=== PATIENT | female | born 1975 | race Caucasian/White ===

== ENCOUNTER 2017-09-22 08:50 | Inpatient (IN) | payer OTHER ==
[2017-09-22] MEDS ORDERED: SODIUM CHLORIDE 0.9% 1,000 ML IV STA ×2 (09:49→10:04)
[2017-09-22] MEDS ORDERED: ONDANSETRON 4 MG/2 ML VIAL IVP STA ×2 (10:04→13:45)
[2017-09-22] MEDS ORDERED: HYDROmorphone 0.5 MG/0.5 ML SYRINGE IVP STA (10:04)
[2017-09-22] MEDS ORDERED: RX INFO: IV CONTRAST WAS GIVEN 1 EACH MISC MISCELLANE PRN (10:04)
[2017-09-22] MEDS ORDERED: KETOROLAC 30 MG/ML 1 ML VIAL IVP STA (10:04)
--- NOTE | 2017-09-22 10:06 | ED ---
Abdominal Pain HPI - General Chief Complaint: Abdominal Pain Stated Complaint: ABDOMINAL PAIN Time Seen by Provider: 09/22/17 09:32 Source: patient, RN notes reviewed, old records reviewed Mode of arrival: ambulatory Limitations: no limitations - History of Present Illness Initial Comments: This is a 42-year-old female chief complaint of 2 days of right lower quadrant right upper quadrant abdominal pain. Patient reports that the pain is been worse with certain movements and going over bumps in the car. She states she's had no fever or chills but has felt nauseated due to the pain. She denies any significant medical history or surgical history. She does have a prescription for Zoloft. She states she's had no vomiting diarrhea or changes in bowel habits or urination. - Related Data Home Medications Medication Instructions Recorded Confirmed Plexis Multivitamin 1 tab PO BID 09/22/17 09/22/17 Sertraline HCl [Zoloft] 100 mg PO HS 09/22/17 09/22/17 Allergies Allergy/AdvReac Type Severity Reaction Status Date / Time Penicillins Allergy Rash/Hives Verified 09/22/17 09:37 Sulfa (Sulfonamide Allergy Rash/Hives Verified 09/22/17 09:37 Antibiotics) Review of Systems ROS Statement: Those systems with pertinent positive or pertinent negative responses have been documented in the HPI. ROS Other: All systems not noted in ROS Statement are negative. Past Medical History Past Medical History: No Reported History History of Any Multi-Drug Resistant Organisms: None Reported Past Surgical History: Section Additional Past Surgical History / Comment(s): uterine ablation Past Psychological History: Anxiety, Depression Smoking Status: Never smoker Past Alcohol Use History: Occasional Past Drug Use History: None Reported General Exam - General Exam Comments Initial Comments: Patient is a 42-year-old female. No acute distress. Limitations: no limitations General appearance: alert, in no apparent distress Head exam: Present: atraumatic, normocephalic, normal inspection Eye exam: Present: normal appearance, PERRL, EOMI. Absent: scleral icterus, conjunctival injection, periorbital swelling ENT exam: Present: normal exam, mucous membranes moist Neck exam: Present: normal inspection Respiratory exam: Present: normal lung sounds bilaterally. Absent: respiratory distress, wheezes, rales, rhonchi, stridor Cardiovascular Exam: Present: regular rate, normal rhythm, normal heart sounds. Absent: systolic murmur, diastolic murmur, rubs, gallop, clicks GI/Abdominal exam: Present: soft, tenderness ( is significant right lower quadrant tenderness.), normal bowel sounds. Absent: distended, guarding, rebound, rigid Course Vital Signs 09/22/17 09/22/17 09/22/17 09:05 12:24 13:04 Temperature 97.9 F Pulse Rate 97 101 H 101 H Respiratory 18 18 16 Rate Blood Pressure 114/57 121/56 116/57 O2 Sat by Pulse 97 99 99 Oximetry Medical Decision Making - Medical Decision Making This patient is a 42-year-old female chief complaint of 2 days of right lower quadrant abdominal pain. She's had no fever or chills. She does have significant tenderness and guarding noted. Positive obturator sign. At this time patient's was given IV fluids and pain medicine. She does report that she feels better after receiving the fluids and pain medicine. We did do a CT abdomen and pelvis. There is evidence of acute appendicitis. Patient is ALLERGIC to penicillins. I did start the patient on Levaquin IV. She's been remaining nothing by mouth. 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 At this time I discussed case with Dr. Mack. We will consult the on-call surgeon. Case discussed with Dr. Shannon. We started patient on antibiotics, likely taking patient to surgery this evening. Patient will remain nothing by mouth. - Lab Data Result diagrams: 09/22/17 10:20 09/22/17 10:20 Lab Results 09/22/17 09/22/17 09/22/17 Range/Units 10:20 10:20 10:20 WBC 15.0 H (3.8-10.6) k/uL RBC 5.01 (3.80-5.40) m/uL Hgb 15.2 (11.4-16.0) gm/dL Hct 47.8 H (34.0-46.0) % MCV 95.4 (80.0-100.0) fL MCH 30.4 (25.0-35.0) pg MCHC 31.9 (31.0-37.0) g/dL RDW 12.0 (11.5-15.5) % Plt Count 237 (150-450) k/uL Neutrophils % 88 % Lymphocytes % 5 % Monocytes % 4 % Eosinophils % 2 % Basophils % 0 % Neutrophils # 13.2 H (1.3-7.7) k/uL Lymphocytes # 0.7 L (1.0-4.8) k/uL Monocytes # 0.7 (0-1.0) k/uL Eosinophils # 0.2 (0-0.7) k/uL Basophils # 0.0 (0-0.2) k/uL Sodium 140 (137-145) mmol/L Potassium 4.3 (3.5-5.1) mmol/L Chloride 104 (98-107) mmol/L Carbon Dioxide 24 (22-30) mmol/L Anion Gap 12 mmol/L BUN 15 (7-17) mg/dL Creatinine 0.72 (0.52-1.04) mg/dL Est GFR (MDRD) Af Amer >60 (>60 ml/min/1.73 sqM) Est GFR (MDRD) Non-Af >60 (>60 ml/min/1.73 sqM) Glucose 71 L (74-99) mg/dL Calcium 9.1 (8.4-10.2) mg/dL Total Bilirubin 1.1 (0.2-1.3) mg/dL AST 20 (14-36) U/L ALT 19 (9-52) U/L Alkaline Phosphatase 61 (38-126) U/L Total Protein 7.2 (6.3-8.2) g/dL Albumin 4.5 (3.5-5.0) g/dL Amylase 47 (30-110) U/L Lipase 96 (23-300) U/L Urine Color Yellow Urine Appearance Clear (Clear) Urine pH 5.5 (5.0-8.0) Ur Specific [place] 1.020 (1.001-1.035) Urine Protein Trace H (Negative) Urine Glucose (UA) Negative (Negative) Urine Ketones 4+ H (Negative) Urine Blood Negative (Negative) Urine Nitrite Negative (Negative) Urine Bilirubin Negative (Negative) Urine Urobilinogen <2.0 (<2.0) mg/dL Ur Leukocyte Esterase Negative (Negative) - Radiology Data Radiology results: report reviewed Findings compatible with acute appendicitis. There is moderate amount of surrounding inflammation and a 1.1 cm appendicolith at the appendiceal base. No abscess or free air noted. There is moderate pelvic free fluid probably reactive. A couple prominent right lower quadrant mesenteric lymph nodes likely reactive as well. Further follow-up is recommended for 3.6 cm mass along the distal curvature of the stomach. This may be arising from the wall the stomach and may represent a Gist tumor. Other neoplastic etiology not excluded at this time. There is also mild to moderate circumferential bladder wall thickening. Correlate for excluding cystitis. Disposition Clinical Impression: Appendicitis, Mass of stomach Disposition: ADMITTED IP TO THIS HOSP Condition: Stable Referrals: Seymour Ernst DO [Primary Care Provider] - 1-2 days Time of Disposition: 13:40
[2017-09-22 10:58] LABS: Basophils % (A) 0 %; Eosinophils # (A) 0.2 k/uL (0-0.7); Eosinophils % (A) 2 %; HCT 47.8 % (34.0-46.0); HGB 15.2 gm/dL (11.4-16.0); Lymphocytes # (A) 0.7 k/uL (1.0-4.8); Lymphocytes % (A) 5 %; MCH 30.4 pg (25.0-35.0); MCHC 31.9 g/dL (31.0-37.0); MCV 95.4 fL (80.0-100.0); Mean Platelet Volume 7.2; Monocytes # (A) 0.7 k/uL (0-1.0); Monocytes % (A) 4 %; Neutrophils # (A) 13.2 k/uL (1.3-7.7); Neutrophils % (A) 88 %; Platelet Count 237 k/uL (150-450); RBC 5.01 m/uL (3.80-5.40)
[2017-09-22 11:02] LABS: Appearance,Urine Clear (Clear); Bilirubin,Urine Negative (Negative); Blood,Urine Negative (Negative); Color,Urine Yellow; Glucose,Urine (UA) Negative (Negative); Ketones,Urine 4+ (Negative); Leukocyte Esterase,Urine Negative (Negative); Nitrite,Urine Negative (Negative); PH, Urine 5.5 (5.0-8.0); Protein,Urine Trace (Negative); Urobilinogen,Urine <2.0 mg/dL (<2.0)
[2017-09-22 11:13] LABS: ALT 19 U/L (9-52); AST 20 U/L (14-36); Albumin 4.5 g/dL (3.5-5.0); Alkaline Phosphatase 61 U/L (38-126); Amylase 47 U/L (30-110); Anion Gap 12 mmol/L; Blood Urea Nitrogen 15 mg/dL (7-17); Calcium 9.1 mg/dL (8.4-10.2); Carbon Dioxide 24 mmol/L (22-30); Chloride 104 mmol/L (98-107); Glucose 71 mg/dL (74-99); Lipase 96 U/L (23-300); Potassium 4.3 mmol/L (3.5-5.1); Sodium 140 mmol/L (137-145); Total Bilirubin 1.1 mg/dL (0.2-1.3); Total Protein 7.2 g/dL (6.3-8.2)
--- NOTE | 2017-09-22 12:20 | CT ---
EXAMINATION TYPE: CT abdomen pelvis w con DATE OF EXAM: 09/22/2017 COMPARISON: NONE HISTORY: 42-year-old female with right sided abdominal pain TECHNIQUE: Contiguous axial scanning of the abdomen and pelvis following administration of 100 ml Omn ipaque 300 IV contrast. Delayed images through the kidneys and coronal/sagittal reconstructions perf ormed. CT DLP: 771 mGycm Automated exposure control for dose reduction was used. FINDINGS: Heart is normal size without pericardial effusion. Lung bases clear without pleural effusion. Small amount of focal fat along the anterior falciform ligament. Otherwise, no focal liver lesion. Gallbladder, adrenal glands, kidneys, spleen, and pancreas show no gross abnormality. There is a heterogeneous enhancing area of soft tissue that is either contiguous with or arises from the distal greater curvature of the stomach measuring 3.6 cm craniocaudal by 2.4 cm wide by 2.3 cm AP , axial image 23 and coronal image 18. This is interposed in the lesser sac. Nonspecific mildly enlarged 7 mm right lower quadrant lymph nodes. Otherwise, no mesenteric or retro peritoneal lymphadenopathy. There is a 1.1 cm appendicolith at the appendiceal base with thickening and surrounding fat stranding of the appendix measuring up to 1.3 cm thick. No free air or abscess is identified. No dilated small bowel. Uterus and ovaries are visualized. There is a 2.5 cm dominant follicle or functional cyst within the left ovary. Bilateral tubal ligation clips. Moderate cul-de-sac free fluid. Mild to moderate circumfe rential bladder wall thickening. No pelvic lymphadenopathy seen. Bones: No osseous destructive process. IMPRESSION: 1. FINDINGS COMPATIBLE WITH ACUTE APPENDICITIS. THERE IS MODERATE SURROUNDING INFLAMMATION AND A 1.1 CM APPENDICOLITH AT THE APPENDICEAL BASE. NO ABSCESS OR FREE AIR SEEN. 2. MODERATE PELVIC FREE FLUID PROBABLY REACTIVE. A COUPLE PROMINENT RIGHT LOWER QUADRANT MESENTERIC L YMPH NODES LIKELY REACTIVE WELL. 3. FURTHER FOLLOW-UP IS RECOMMENDED FOR A 3.6 CM MASS ALONG THE DISTAL GREATER CURVATURE OF THE STOMA CH. THIS MAY BE ARISING FROM THE WALL OF THE STOMACH AND MAY REPRESENT A GIST TUMOR. OTHER NEOPLASTIC ETIOLOGY NOT EXCLUDED AT THIS TIME. 4. MILD TO MODERATE CIRCUMFERENTIAL BLADDER WALL THICKENING. CORRELATE TO EXCLUDE CYSTITIS.
[2017-09-22] MEDS ORDERED: LEVOFLOXACIN 750MG-D5W PMX 750 MG in DEXTROSE/WATER 1 150ML.BAG IVPB STA (12:34)
[2017-09-22] MEDS: SODIUM CHLORIDE 0.9% 1,000 ML IV SCH (13:02)
[2017-09-22] MEDS ORDERED: NALOXONE 0.4 MG/ML 1 ML VIAL IV PRN (13:41)
[2017-09-22] MEDS ORDERED: IBUPROFEN 400 MG TAB PO PRN (13:41)
[2017-09-22] MEDS ORDERED: HYDROmorphone 0.5 MG/0.5 ML SYRINGE IVP PRN (13:41)
[2017-09-22] MEDS ORDERED: ACETAMINOPHEN TAB 325 MG TAB PO PRN (13:41)
[2017-09-22] MEDS: HYDROmorphone 0.5 MG/0.5 ML SYRINGE IVP PRN ×2 (15:45→17:35)
[2017-09-22] MEDS: ONDANSETRON 4 MG/2 ML VIAL IVP PRN (17:35)
--- NOTE | 2017-09-22 19:40 | P.GSHP ---
History of Present Illness H&P Date: 09/22/17 Chief Complaint: abdominal pain The patient presented with about 2 days history of abdominal pain. Workup in the emergency department showed evidence of acute appendicitis. She's had some nausea. No previous episodes of this in the past. - Review of Systems All systems: negative Past Medical History Past Medical History: No Reported History Additional Past Medical History / Comment(s): umb hernia, History of Any Multi-Drug Resistant Organisms: None Reported Past Surgical History: Section, Tubal Ligation Additional Past Surgical History / Comment(s): uterine ablation , x2 Past Anesthesia/Blood Transfusion Reactions: No Reported Reaction Smoking Status: Never smoker - Past Family History Mother Family Medical History: Diabetes Mellitus, Rheumatoid Arthritis (RA) Additional Family Medical History / Comment(s): lupus Father Family Medical History: Hyperlipidemia, Hypertension Medications and Allergies Home Medications Medication Instructions Recorded Confirmed Type Plexis Multivitamin 1 tab PO BID 09/22/17 09/22/17 History Sertraline HCl [Zoloft] 100 mg PO HS 09/22/17 09/22/17 History Allergies Allergy/AdvReac Type Severity Reaction Status Date / Time Penicillins Allergy Rash/Hives Verified 09/22/17 14:31 Sulfa (Sulfonamide Allergy Rash/Hives Verified 09/22/17 14:31 Antibiotics) Surgical - Exam Osteopathic Statement: *. No significant issues noted on an osteopathic structural exam other than those noted in the History and Physical/Consult. Vital Signs Temp Pulse Resp BP Pulse Ox 97.9 F 97 18 114/57 97 09/22/17 09:05 09/22/17 09:05 09/22/17 09:05 09/22/17 09:05 09/22/17 09:05 - General well developed, well nourished, no distress - Eyes normal ocular movement - ENT normal pinna, normal nares, normal mucosa - Neck trachea midline - Respiratory normal respiratory effort, clear to auscultation absent: dullness - Cardiovascular Rhythm: regular - Abdomen Abdomen: soft, tender (RLQ), bowel sounds (Hypoactive) Results - Labs 09/22/17 10:20 09/22/17 10:20 Abnormal Lab Results - Last 24 Hours (Table) 09/22/17 09/22/17 09/22/17 Range/Units 10:20 10:20 10:20 WBC 15.0 H (3.8-10.6) k/uL Hct 47.8 H (34.0-46.0) % Neutrophils # 13.2 H (1.3-7.7) k/uL Lymphocytes # 0.7 L (1.0-4.8) k/uL Glucose 71 L (74-99) mg/dL Urine Protein Trace H (Negative) Urine Ketones 4+ H (Negative) Diabetes panel 09/22/17 Range/Units 10:20 Sodium 140 (137-145) mmol/L Potassium 4.3 (3.5-5.1) mmol/L Chloride 104 (98-107) mmol/L Carbon Dioxide 24 (22-30) mmol/L BUN 15 (7-17) mg/dL Creatinine 0.72 (0.52-1.04) mg/dL Glucose 71 L (74-99) mg/dL Calcium 9.1 (8.4-10.2) mg/dL AST 20 (14-36) U/L ALT 19 (9-52) U/L Alkaline Phosphatase 61 (38-126) U/L Total Protein 7.2 (6.3-8.2) g/dL Albumin 4.5 (3.5-5.0) g/dL Calcium panel 09/22/17 Range/Units 10:20 Calcium 9.1 (8.4-10.2) mg/dL Albumin 4.5 (3.5-5.0) g/dL Pituitary panel 09/22/17 Range/Units 10:20 Sodium 140 (137-145) mmol/L Potassium 4.3 (3.5-5.1) mmol/L Chloride 104 (98-107) mmol/L Carbon Dioxide 24 (22-30) mmol/L BUN 15 (7-17) mg/dL Creatinine 0.72 (0.52-1.04) mg/dL Glucose 71 L (74-99) mg/dL Calcium 9.1 (8.4-10.2) mg/dL Adrenal panel 09/22/17 Range/Units 10:20 Sodium 140 (137-145) mmol/L Potassium 4.3 (3.5-5.1) mmol/L Chloride 104 (98-107) mmol/L Carbon Dioxide 24 (22-30) mmol/L BUN 15 (7-17) mg/dL Creatinine 0.72 (0.52-1.04) mg/dL Glucose 71 L (74-99) mg/dL Calcium 9.1 (8.4-10.2) mg/dL Total Bilirubin 1.1 (0.2-1.3) mg/dL AST 20 (14-36) U/L ALT 19 (9-52) U/L Alkaline Phosphatase 61 (38-126) U/L Total Protein 7.2 (6.3-8.2) g/dL Albumin 4.5 (3.5-5.0) g/dL - Imaging CT scan - abdomen: report reviewed Assessment and Plan (1) Appendicitis Current Visit: Yes Status: Acute Code(s): K37 - UNSPECIFIED APPENDICITIS SNOMED Code(s): 39117207 Plan: Plan is laparoscopic appendectomy possible open. The procedure risk and complications were discussed. Questions were encouraged and answered. Usual postoperative course was discussed. I will do this for her today.
[2017-09-22] MEDS ORDERED: MIDAZOLAM 2 MG/2 ML VIAL ONE (19:42)
[2017-09-22] MEDS ORDERED: PROPOFOL 10 MG/ML 20 ML VIAL IV ONE (19:42)
[2017-09-22] MEDS ORDERED: GLYCOPYRROLATE 0.2 MG/ML 2 ML VIAL ONE (19:42)
[2017-09-22] MEDS ORDERED: NEOSTIGMINE 1 MG/ML 10 ML VIAL ONE (19:42)
[2017-09-22] MEDS ORDERED: LIDOCAINE 1% INJ 10MG/ML (20 ML MDV) ONE (19:42)
[2017-09-22] MEDS ORDERED: KETOROLAC 30 MG/ML 1 ML VIAL ONE (19:42)
[2017-09-22] MEDS ORDERED: fentaNYL (PF) 50 MCG/ML 2 ML AMP ONE (19:42)
[2017-09-22] MEDS ORDERED: SUCCINYLCHOLINE CHLORIDE 100 MG/5 ML SYR IV ONE (19:42)
[2017-09-22] MEDS ORDERED: IV FLUID CONTINUATION 300 ML IV ONE (20:00)
[2017-09-22] MEDS ORDERED: SODIUM CHLORIDE 0.9% 50 ML with CLINDAMYCIN 600 MG IV ONE ×2 (20:00)
[2017-09-22] MEDS ORDERED: LACTATED RINGERS 1,000 ML IV ONE (20:00)
[2017-09-22] MEDS ORDERED: BUPIVACAINE (PF) 0.25% 30 ML VIAL SQ ONE ×2 (20:05)
--- NOTE | 2017-09-22 20:34 | P.OP ---
Date of Procedure: 09/22/17 Preoperative Diagnosis: Acute appendicitis Postoperative Diagnosis: Acute appendicitis with contained perforation Procedure(s) Performed: Laparoscopic appendectomy Anesthesia: EHSAN Surgeon: Paulina Shannon Estimated Blood Loss (ml): 25 Pathology: other (Appendix) Condition: stable Disposition: PACU Indications for Procedure: Patient presented with abdominal pain and a CT consistent with acute appendicitis Operative Findings: Acute appendicitis with a perforation contained into the mesentery of the appendix. Otherwise the liver, diaphragm, large and small bowel were normal where they were seen. Anterior wall of the stomach appeared unremarkable. Description of Procedure: The patient's taken the operative suite where she is prepped and draped in the usual sterile manner under general endotracheal anesthetic. An infraumbilical incision was made. There is a very small umbilical hernia. The defect is dissected free and the peritoneum is entered. A finger sweep was carried out. A balloon trocar was inserted and pneumoperitoneum was established with CO2 gas. Sites are chosen for accessory trochars needs are placed through small skin incisions. The abdominal and pelvic contents were examined with findings as described above. Some of the mesentery is adherent to the appendix. Its dissected free using harmonic scissors leaving a portion of it adherent. The mesentery the appendix is then taken down with harmonic scissors. There is noted to be a fluid collection with some purulent material and succus entericus. The base of the appendix appeared fairly normal. It's ligated with endoscopic KAYLYN stapler. The appendix is placed into a specimen retrieval bag. The pelvis, paracolic gutter and some diaphragmatic space on the right side are then copiously irrigated and aspirated. The pneumoperitoneum was then released. The trochars were removed. The specimen retrieval bag was removed. The fascia at the umbilicus was closed with 0 Vicryl. The skin had some oozing , this is because the local was not available with epinephrine. The skin was closed with augusto and sterile pressure dressings were applied. She tolerated the procedure without difficulty and is taken recovery room in satisfactory condition. According to or personnel, all counts are correct.
--- NOTE | 2017-09-22 20:36 | P.HPADDEND ---
H&P Addendum H&P Addendum Date: 09/22/17 The gastric wall along the greater curvature his abnormal appearing on computed tomography scan. The anterior gastric wall appeared unremarkable. Therefore the patient will undergo a EGD as outpatient to evaluate this further.
[2017-09-22] MEDS ORDERED: METOCLOPRAMIDE 5 MG/ML 2 ML VIAL IVP PRN (20:43)
[2017-09-22 21:58] LABS: Hemoglobin A1C 4.9 % (4.0-6.0)
[2017-09-23] MEDS: metroNIDAZOLE-NS PMX 500 MG in SALINE 1 100ML.BAG IVPB SCH ×4 (00:41→17:52)
[2017-09-23] MEDS: ONDANSETRON 4 MG/2 ML VIAL IVP PRN ×2 (00:53→07:32)
[2017-09-23] MEDS: SERTRALINE 100 MG TAB PO SCH ×2 (03:19→20:45)
[2017-09-23] MEDS: SODIUM CHLORIDE 0.9% 1,000 ML IV SCH ×3 (05:51→19:41)
[2017-09-23] MEDS: HYDROcodone/APAP 5-325MG 1 EACH TAB PO PRN ×3 (05:52→18:43)
[2017-09-23 07:31] LABS: Basophils % (A) 0 %; Eosinophils % (A) 0 %; HCT 39.5 % (34.0-46.0); HGB 12.9 gm/dL (11.4-16.0); Lymphocytes # (A) 0.4 k/uL (1.0-4.8); Lymphocytes % (A) 4 %; MCH 30.8 pg (25.0-35.0); MCHC 32.7 g/dL (31.0-37.0); MCV 94.1 fL (80.0-100.0); Mean Platelet Volume 7.9; Monocytes # (A) 0.5 k/uL (0-1.0); Monocytes % (A) 5 %; Neutrophils # (A) 9.2 k/uL (1.3-7.7); Neutrophils % (A) 90 %; Platelet Count 171 k/uL (150-450); RDW 12.1 % (11.5-15.5); WBC 10.2 k/uL (3.8-10.6)
[2017-09-23] MEDS: HYDROmorphone 0.5 MG/0.5 ML SYRINGE IVP PRN (07:32)
--- NOTE | 2017-09-23 09:47 | PN ---
PROGRESS NOTE DATE OF SERVICE: 09/23/2017 CHIEF COMPLAINT: Appendicitis. HISTORY: The patient is postop day 1 from a laparoscopic appendectomy. She had acute appendicitis with a contained perforation. She is having some soreness in the incisions, which is controlled with the pain medication. She is having some nausea, but no vomiting. She still feels fairly tired. PHYSICAL EXAM: Vital signs are stable. She is afebrile. Slightly tachycardic. Her abdomen is soft. Positive bowel sounds. The dressings are intact, clean and dry. LAB: Her white count down to 10,200. Hemoglobin is 12.9. ASSESSMENT: 1. Postoperative day one laparoscopic appendectomy. 2. Nausea. PLAN: We will continue some IV antibiotics and reassess her this afternoon. If her nausea is improved and she is feeling better, we will let her be discharged home. Otherwise, I will re-evaluate her in the morning. We will continue oral antibiotics for 7 days due to the contained perforation. Of note, she had an abnormal CT scan of the stomach along the greater curvature that will be addressed as outpatient. MMODL / IJN: [id number] /
[2017-09-23] MEDS: PANTOPRAZOLE 40 MG/10 ML VIAL IV SCH (09:52)
[2017-09-23] MEDS: LEVOFLOXACIN 500MG-D5W PMX 500 MG in DEXTROSE/WATER 1 100ML.BAG IVPB SCH (13:10)
[2017-09-23] MEDS: DOCUSATE 100 MG CAP PO SCH ×2 (13:19→20:45)
[2017-09-24] MEDS: metroNIDAZOLE-NS PMX 500 MG in SALINE 1 100ML.BAG IVPB SCH ×3 (00:43→12:45)
[2017-09-24] MEDS: HYDROcodone/APAP 5-325MG 1 EACH TAB PO PRN ×4 (00:48→15:07)
[2017-09-24] MEDS: SODIUM CHLORIDE 0.9% 1,000 ML IV SCH (05:38)
[2017-09-24] MEDS: PANTOPRAZOLE 40 MG/10 ML VIAL IV SCH (08:48)
[2017-09-24] MEDS: DOCUSATE 100 MG CAP PO SCH (08:48)
[2017-09-24] MEDS ORDERED: SIMETHICONE 80 MG CHEWABLE PO PRN (11:20)
[2017-09-24 11:54] VITALS: BP 109/73; PULSE 103; RESP 16; TEMP 98.5
[2017-09-24] MEDS: LEVOFLOXACIN 500MG-D5W PMX 500 MG in DEXTROSE/WATER 1 100ML.BAG IVPB SCH (14:05)
[2017-09-24] MEDS: ONDANSETRON 4 MG/2 ML VIAL IVP PRN (15:04)
--- NOTE | 2017-09-25 07:03 | P.DS ---
Providers Date of admission: 09/22/17 13:41 Expected date of discharge: 09/24/17 Attending physician: Paulina Shannon Primary care physician: Seymour Ernst - Discharge Diagnosis(es) (1) Appendicitis Status: Acute Hospital Course: The patient presented with several day history of abdominal pain. Workup in the emergency department showed acute appendicitis. She was taken the OR where she will underwent laparoscopic appendectomy. The appendix was very inflamed with evidence of perforation into the mesentery of the appendix. It was removed laparoscopically. Postoperatively she was given antibiotics. She had some malaise and poor appetite which slowly resolved. By 09-24 she was tolerating a diet, pain was controlled, she was felt to be stable for discharge Pertinent Studies: CT, labs Procedures: Laparoscopic appendectomy Patient Condition at Discharge: Good Plan - Discharge Summary Discharge Rx Participant: Yes New Discharge Prescriptions: New Ciprofloxacin HCl [Cipro] 500 mg PO Q12HR 7 Days #14 tablet HYDROcodone/APAP 5-325MG [[place] 5-325] 1 - 2 tab PO Q4H PRN #30 tab PRN Reason: Pain metroNIDAZOLE [Flagyl] 500 mg PO TID #21 tab No Action Sertraline HCl [Zoloft] 100 mg PO HS Plexis Multivitamin 1 tab PO BID Discharge Medication List Plexis Multivitamin 1 tab PO BID 09/22/17 [History] Sertraline HCl [Zoloft] 100 mg PO HS 09/22/17 [History] Ciprofloxacin HCl [Cipro] 500 mg PO Q12HR 7 Days #14 tablet 09/23/17 [Rx] HYDROcodone/APAP 5-325MG [[place] 5-325] 1 - 2 tab PO Q4H PRN #30 tab 09/23/17 [Rx ] metroNIDAZOLE [Flagyl] 500 mg PO TID #21 tab 09/23/17 [Rx] Follow up Appointment(s)/Referral(s): Paulina Shannon DO [Doctor of Osteopathic Medicine] - 10/07/17 1:30 pm Seymour Ernst DO [Primary Care Provider] - 1-2 days Patient Instructions/Handouts: Appendicitis (GEN) Activity/Diet/Wound Care/Special Instructions: The dressings may be removed wednesday then you may shower. No tub bath for 1 week. Expect some bruising. Call if wound concerns, fever, chills, nausea or vomiting. Motrin or tylenol are ok to take instead of pain pills. Discharge Disposition: HOME SELF-CARE
== END 2017-09-24 17:27 | disposition home or self-care (01) | DRG 343 ==
LOC: EC 08:50 → 6PED 13:41
PROVIDERS: ADMIT Surgery; ATTEND Surgery
PROC: 0DTJ4ZZ Resection of Appendix, Percutaneous Endoscopic Approach (ICD-10-PCS; principal; 2017-09-22 18:25)
DX: K35.80 Unspecified acute appendicitis (principal); F32.9 Major depressive disorder, single episode, unspecified; K31.9 Disease of stomach and duodenum, unspecified; F41.9 Anxiety disorder, unspecified; R11.0 Nausea; Z79.899 Other long term (current) drug therapy; Z88.0 Allergy status to penicillin; Z88.2 Allergy status to sulfonamides; Z82.49 Family history of ischemic heart disease and other diseases of the circulatory system
CPT/HCPCS: 36415; 74177; 80053; 81003; 81025; 82150; 83036; 83690; 85025; 88304; 96361; 96365; 96375; 96376; 99285

== ENCOUNTER 2017-11-16 11:00 | Day surgery (SDC) | payer OTHER ==
[~2017-11-16 11:00] MED LIST: SODIUM CHLORIDE 0.9% 500 ML in EMPTY BAG 1 BAG IV PRN
[2017-11-16 11:56] VITALS: RESP 16; TEMP 97.8
--- NOTE | 2017-11-16 13:35 | XR ---
EXAMINATION TYPE: XR chest 1V portable DATE OF EXAM: 11/16/2017 COMPARISON: Chest x-ray 11/10/2017 HISTORY: Status post right thoracentesis TECHNIQUE: Single frontal view of the chest is obtained. FINDINGS: There is improved aeration at the right lung base, some persistent blunting of the right c ostophrenic angle, obscured right heart border and hemidiaphragm noted. No pneumothorax. IMPRESSION: No evident complication status post right thoracentesis. Residual basilar atelectasis, s mall right pleural effusion noted.
--- NOTE | 2017-11-16 14:51 | US ---
EXAMINATION TYPE: US thoracentesis DATE OF EXAM: 11/16/2017 COMPARISON: NONE HISTORY: Pleural effusion. FINDINGS: Maximal barrier technique was utilized. The skin overlying a suitable pocket of fluid was localized and the overlying skin prepped and draped. Lidocaine was used for local anesthesia. Ultras ound was used with sterile technique. A 8 Turkish catheter over guide needle was advanced into the pl eural fluid collection using ultrasound guidance and catheter advanced, needle removed. Approximatel y 1.2 liter(s) of serous fluid was removed. Catheter was withdrawn and hemostasis achieved. There i s no immediate complication. The patient discharged in stable condition without complication. IMPRESSION: STATUS POST ULTRASOUND GUIDED THORACENTESIS, POST PROCEDURE CHEST X-RAY PENDING. THIS IA OCEDURE WAS PERFORMED BY THE UNDERSIGNED. Specimen sent for laboratory analysis.
[2017-11-16 16:05] VITALS: BP 118/65; PULSE 73
[2017-11-16 21:22] LABS: Total Protein, Body Fluid 4700 mg/dL
== END 2017-11-17 11:06 | disposition home or self-care (01) ==
LOC: PROCWHC3 11:00
PROVIDERS: ATTEND Internal Medicine
DX: J90 Pleural effusion, not elsewhere classified (principal); J98.11 Atelectasis; C49.A0 Gastrointestinal stromal tumor, unspecified site; R07.81 Pleurodynia; Z90.49 Acquired absence of other specified parts of digestive tract; J98.4 Other disorders of lung; Z79.2 Long term (current) use of antibiotics; Z79.891 Long term (current) use of opiate analgesic; Z79.52 Long term (current) use of systemic steroids; Z79.899 Other long term (current) drug therapy; Z88.0 Allergy status to penicillin; Z88.2 Allergy status to sulfonamides; Z79.1 Long term (current) use of non-steroidal anti-inflammatories (NSAID); Z98.51 Tubal ligation status
CPT/HCPCS: 88108; 88305; 87070; 87205; 87075; 82945; 83615; 84157; 71045; 32555; J2001

== ENCOUNTER → 2017-11-16 | Outpatient (CLI) | payer OTHER ==
--- NOTE | 2017-11-16 11:16 | US ---
EXAMINATION TYPE: US chest DATE OF EXAM: 11/16/2017 COMPARISON: Chest x-ray from [address] abdomen and pelvis September 22, 2017 CLINICAL HISTORY: J91.8 PLEURAL EFFUSION. Marking EXAM MEASUREMENTS: Right Pleural Effusion fluid pocket: 10.8 cm Right skin to fluid thickness: 2.1 cm Right side marked for possible thoracentesis outside the dept. Pulmonologists are able to review the images in the patient?s EMR. First 2 images show no significant left-sided effusion which correlates with recent chest x-ray. Ther e is persistent moderate size right pleural effusion confirmed which correlates with recent chest x-r ay on last 4 images. IMPRESSIONS: As above
== END | disposition home or self-care (01) ==
LOC: RADUSWWP 10:25
PROVIDERS: ATTEND Internal Medicine
DX: J90 Pleural effusion, not elsewhere classified (principal)
CPT/HCPCS: 76604

== ENCOUNTER → 2020-05-21 | Outpatient (CLI) | payer OTHER | END | disposition home or self-care (01) | LOC: LABWHC1 10:01 | PROVIDERS: ATTEND Internal Medicine | DX: R07.9 Chest pain, unspecified (principal) | CPT/HCPCS: 36415; 85379 ==

== ENCOUNTER → 2024-02-24 | Outpatient (CLI) | payer BC, OTHER ==
--- NOTE | 2024-02-24 11:46 | FL ---
ESOPHOGRAM. HISTORY: Dysphagia Esophagram was performed per the air contrast technique. The patient swallowed barium and effervesce nt crystals without difficulty or delay. Esophageal peristalsis and motility appear to be within normal limits. There is no evidence for filling defect, mass or diverticulum. No hiatal hernia seen. Subsequently single contrast cervical esophagram was performed which fails demonstrate evidence for a spiration penetration or mass. IMPRESSION: Unremarkable study.
== END | disposition home or self-care (01) ==
LOC: RADUSWWP 10:53
PROVIDERS: ATTEND Family Medicine
DX: R13.19 Other dysphagia (principal)
CPT/HCPCS: 74220